=== PATIENT | male | born 1990 | race Caucasian/White ===

== ENCOUNTER 2024-05-19 14:09 | Outpatient (CLI) | payer OTHER, SELFPAY ==
--- OUTSIDE RECORDS SUMMARY | 2024-05-19 14:24 | XMS_ITS | Clinical Summary ---
Author Organization [facility] Address [address] [place] [address] Care Team Providers Care Mobile Development Manager Name Role Phone Sulema Devine M.D. Primary Care Lester kat Source Comments Patient records contain information from all sites at [facility]. For routine questions regarding patient records, call [phone] during business hours, M-F 8:00 AM - 5:00 PM Central Time. Record requests for emergency care only can be directed to [phone] at any time.[facility] Allergies No known active allergies Medications Medication Sig Dispensed Refills Start Date End Date Status clobetasol (TEMOVATE) 0.05 % gel Apply topically as needed (Canker sores). 60 g 11/24/2019 Active ALPRAZolam (XANAX) 1 mg tablet Take 1-2 tablets (1-2 mg total) by mouth 30 minutes prior to procedure. 2 tablet 02/02/2023 Active Active Problems Problem Noted Date Diagnosed Date Hypoxia Sleep Related 10/19/2020 Overview: Images from the original note were not included. In 2011, the patient had sleep medicine consult here at [facility] for what he described was restless sleep. On 07/31/2012, the patient underwent pulse oximetry which was unremarkable. At that time, there was reported discussion about doing a sleep study in the possible benefit of CPAP therapy, but the patient deferred this. In September 2020, the patient reached out to his PCP about possibly repeating some of these tests. On 10/08/2020, he underwent repeat pulse oximetry that did have a lapse in recording for approximately 2 hours, but otherwise revealed a baseline SpO2 90% with approximately 6 desaturation events recorded. He subsequently underwent PFTs which were unremarkable, documented below. The patient reports that his says he gets restless sleep but does not snore. He reports he will wake up about 1 time per night. He denies AM headaches, fatigue, weight gain. He denies a history of sleep apnea. He reports that he exercises frequently and can run up to 4 miles easily. Last Assessment & Plan: Overall, my suspicion for obstructive sleep apnea or physiologic hypoxia are low given the patient's normal PFTs, clinical exam, and overall active healthy lifestyle. Given that his probe did not strip picker any oxygen levels for approximately 4 hours, I wonder if this is a false positive overnight pulse oximetry. Regardless, we will be having him seen by our colleagues in [facility] Sleep Medicine for further management to discuss possible sleep study versus repeat overnight pulse oximetry. Dysfunction Eustachian Tube Bilateral 10/19/2020 Overview: The patient reports a long history of eustachian tube dysfunction. He reports a history of not being able to hear for approximately 1 day after going on flights, as well as going scuba diving back in 2010 were water would not clear from his ears for about 1 week. He saw outside ENT at that time where he was reportedly told there were not any therapies offered. Since then, he reports his symptoms have remained relatively constant. He reports feeling increased pressure in his ears when he is working out at the gym, and states that his friends say his voice changes, like an exhaled moan. He denies any ear pain, fullness, hearing loss, tinnitus, nasal itch, frequent sneezing, rhinorrhea, sore throat, cough, heartburn, vertigo, or frequent ear infections as a child. ?? Last Assessment & Plan: Overall, based on the patient's history and clinical exam, my suspicion for eustachian tube dysfunction is high. He reports a clear history of water not being able to clear from his ears for about 1 week after scuba diving. Moreover, his notable air bubbles around the tympanic membrane Vishnu suspicious for eustachian tube dysfunction. Differential includes Meniere's disease which is less likely based on lack of vertigo/dizziness symptoms. We will order audiogram and have him be seen by our colleagues in ENT for further discussion and treatment options for his eustachian tube dysfunction. Encounters Date Type Department Care Team Description 03/11/2024 8:30 AM CDT Clinical Support - [facility] Division of General Internal Medicine in [place], [place] [address] [place] [address] Michelle Barragan from Last 3 Months Immunizations Name Administration Dates Next Due 9vHPV 05/24/2020,01/06/2020,11/18/2019 HepB Adult 02/17/2014,09/22/2013,07/21/2013 HepB, Unspecified 01/27/2003,08/08/2002,07/24/20 Influenza (IM) Preservative Free 09/09/2013,08/26 Influenza Split 09/06/2010 MMR 07/24/2001,07/18/1990 OPV 08/10/1998,,09/30/1990,1988 SARS-COV-2 (COVID-19) - MODERNA(Discontinued) 11/17/2021 SARS-COV-2 (COVID-19) - PFIZ ER (Discontinued)(12 years or older) 12/29/2020,11/24/2020 Td Preservative Free (TENIVA C, DECAVAC) 11/18/2019 Td, (Adult) Unspecified 12/07/2009 Tdap 12/07/2009 influenza vaccine quad (FLUZONE/FLUARIX) (6 months and older)(PF) 09/25/2022,08/30/2021,09/21/2020,2018,09/18/2018,09/22/2015,09/16/2014 Social History Tobacco Use Types Packs/Day Years Used Date Smoking Tobacco: Never Smokeless Tobacco: Never [employer] Utilities Answer Date Recorded In the past 12 months has e electric, gas, oil, or water company threatened to shut off services in your home? No 03/07/2024 Humiliation, Afraid, Rape, and Kick questionnair e Answer Date Recorded Within the last year, have y ou been afraid of your partner or ex-partner? No 10/14/2020 Within the last year, have y ou been humiliated or emotionally abused in other ways by your partner or ex-partner? No Within the last year, have y ou been kicked, hit, slapped, or otherwise physically hurt by your partner or ex-partner? No 10/14/2020 Within the last year, have y ou been raped or forced to have any kind of sexual activity by your partner or ex-partner? No 10/14/2020 Social Connection and Isolat ion Panel [NHANES] Answer Date Recorded In a typical week, how many times do you talk on the phone with family, friends, or neighbors? More than three times a week 10/14/2020 How often do you get togethe r with friends or relatives? Twice a week 10/14/2020 How often do you attend chur or yazidism services? More than 4 times per year 10/14/2020 Do you belong to any clubs o r organizations such as christian groups, unions, fraternal or athletic groups, or school groups? Yes 10/14/2020 How often do you attend meet ings of the clubs or organizations you belong to? More than 4 times per year 10/14/2020 Are you , , di vorced, , never , or living with a partner? 10/14/2020 AUDIT-C Answer Date Recorded Q1: How often do you have a drink containing alc ohol? 2-4 times a month 10/14/2020 Q2: How many drinks containi ng alcohol do you have on a typical day when you are drinking? 1 or 2 10/14/2020 Q3: How often do you have si x or more drinks on one occasion? Never 10/14/2020 Overall Financial Resource Strain (CARDIA) Answe r Date Recorded How hard is it for you to pa y for the very basics like food, housing, medical care, and heating? Not hard at all 10/14/2020 PHQ-2 Answer Date Recorded PHQ-2 Score 0 01/29/2023 [facility] of Occupat ional Health - Occupational Stress Questionnaire Answer Date Recorded Do you feel stress - tense, restless, nervous, or anxious, or unable to sleep at night because your mind is troubled all the time - these days? Only a little 10/14/2020 Exercise Vital Sign Answer Date Recorde d On average, how many days pe r week do you engage in moderate to strenuous exercise (like a brisk walk)? 2 days 03/07/2024 On average, how many minutes do you engage in exercise at this level? 10 min 03/07/2024 Hunger Vital Sign Answer Date Recorded Within the past 12 months, y ou worried that your food would run out before you got the money to buy more. Never true 03/07/20 Within the past 12 months, t he food you bought just didn't last and you didn't have money to get more. Never true 03/07/2024 PRAPARE - Transportation Answer Date Re corded In the past 12 months, has l ack of transportation kept you from medical appointments or from getting medications? No 02/24 In the past 12 months, has l ack of transportation kept you from meetings, work, or from getting things needed for daily living? No 03/07/2024 Nutrition Answer Date Recorded Nutrition: EVOO Fat Source Unknown 03/07 On average, how many serving s of fruits and vegetables do you eat per day (serving size is equal to 1 cup or approximately the size of a tennis ball)? 3-5 03/07/2024 Dental Answer Date Recorded Dental: Regular Dentist Yes 03/07/20 Employment Answer Date Recorded Employment status Employed and actively working without restrictions 03/07/2024 Housing Stability Answer Date Recorded What is your living situation today? I have a [facility] place to live 03/07/2024 Education Answer Date Recorded What is the highest level of school you have completed or the highest degree you have received? Professional school degree (e.g., MD, DDS, DVM, ELVI) 10/14/2020 Sex and Gender Information Value Date Recorded Sex Assigned at Male 01/06/2020 7:41 AM PHARMACEUTICAL ASSISTANT Gender Identity Male 01/06/2020 7:41 AM PHARMACEUTICAL ASSISTANT Sexual Orientation Straight 01/06/2020 7: 41 AM PHARMACEUTICAL ASSISTANT Last Filed Vital Signs Vital Sign Reading Time Taken Comments Blood Pressure 101/67 10/19/2020 3:37 PM PHARMACEUTICAL ASSISTANT Pulse 88 10/19/2020 3:37 PM PHARMACEUTICAL ASSISTANT Temperature 36.1 ??C (97 ??F) 07/10/2019 5:52 PM CDT Respiratory Rate - - Oxygen Saturation 100% 07/10/2019 5:52 PM CDT Inhaled Oxygen Concentration - - Weight 66.6 kg (146 lb 13.2 oz) 10/19/2020 3:37 PM PHARMACEUTICAL ASSISTANT Height 176.6 cm (5' 9.53) 09/07/2016 3:04 PM CD T Body Mass Index 21.35 09/07/2016 3:04 PM CDT Plan of Treatment Health Maintenance Due Date Last Done Comments HIV Screening 1989 Lipid (Cholesterol) Screening 1989 COVID-19 Vaccine ( - 2022- season) 2023 11/17/2021, 12/29/2020, 11/24/2020 Depression Screening (Annual PHQ-2) 11/26/2023 DTaP,Tdap,and Td Vaccines (4 - Td or Tdap) 11/18/2029 11/18/2019, 12/07/2009, 12/07/2009 Hepatitis B Vaccines Completed 02/17/2014, 09/22/2013, 07/21/2013, Additional history exists HPV Vaccines Completed 05/24/2020, 12/27, 11/18/2019 Influenza Vaccine Completed 08/14/2023, , 08/30/2021, Additional history exists Pneumococcal vaccine (0-64 years) Aged Out No longer eligible based on patient's age to complete this topic Advance Directives For more information, please contact: [phone] Documents on File Type Date Recorded Patient Rehab Tech Expl anation Advance Directives 11/17/2015 12:00 AM Maren garg document. See document viewer. Care Teams Mobile Development Manager Relationship Specialty Start Date End Date Sulema Devine M.D. [address] [place] [address] PCP - General 05/26/22
--- OUTSIDE RECORDS SUMMARY | 2024-05-19 14:24 | XMS_ITS ---
Author Organization [facility] Address [address] [place] [address] Care Team Providers Care Profiling Machine Setup Operator Name Role Phone Unavailable Unavailable Unavailable Surgery Details Not on file Complications Check Surgery Details section. Procedure Estimated Blood Loss Check Surgery Details section. Procedure Findings Check Surgery Details section. Procedure Specimens Taken Check Surgery Details section.
--- OUTSIDE RECORDS SUMMARY | 2024-05-19 14:24 | XMS_ITS | Referral Summary ---
Author Organization [facility] Address [address] [place] [address] Care Team Providers Care Architecture Consultant Name Role Phone Sulema Devine M.D. Primary Care Lester kat Source Comments Patient records contain information from all sites at [facility]. For routine questions regarding patient records, call [phone] during business hours, M-F 8:00 AM - 5:00 PM Central Time. Record requests for emergency care only can be directed to [phone] at any time.[facility] Encounters Date Type Department Care Team Description 03/11/2024 8:30 AM CDT Clinical Support - [facility] Division of General Internal Medicine in [place], [place] [address] [place] [address] Michelle Barragan from Last 3 Months Allergies No known active allergies Medications Medication [...] patient had sleep medicine consult here at [facility] for what he described was restless sleep. [...] lifestyle. Given that his probe did not picker packer any oxygen levels for approximately 4 hours, I wonder if this is a false positive overnight pulse oximetry. Regardless, we will be having him seen by our colleagues in [facility] Sleep Medicine for further management to discuss [...] treatment options for his eustachian tube dysfunction. Immunizations Name Administration Dates Next Due 9vHPV [...] Date Smoking Tobacco: Never Smokeless Tobacco: Never Bee There Utilities Answer Date Recorded In the past [...] How often do you attend chur or uatsdin services? More than 4 times per year 10/14/2020 Do you belong to any clubs o r organizations such as mandaen groups, unions, fraternal or athletic groups, or [...] Answer Date Recorded PHQ-2 Score 0 01/29/2023 [facility] of Occupat ional Health - Occupational Stress [...] your living situation today? I have a [facility] place to live 03/07/2024 Education Answer Date Recorded What is the highest level of school you have completed or the highest degree you have received? Professional school degree (e.g., MD, DDS, DVM, ELVI) 10/14/2020 Sex and Gender Information Value Date Recorded Sex Assigned at Male 01/06/2020 7:41 AM SOLAR DEVELOPMENT ENGINEER Gender Identity Male 01/06/2020 7:41 AM SOLAR DEVELOPMENT ENGINEER Sexual Orientation Straight 01/06/2020 7: 41 AM SOLAR DEVELOPMENT ENGINEER Last Filed Vital Signs Vital Sign Reading Time Taken Comments Blood Pressure 101/67 10/19/2020 3:37 PM SOLAR DEVELOPMENT ENGINEER Pulse 88 10/19/2020 3:37 PM SOLAR DEVELOPMENT ENGINEER Temperature 36.1 ??C (97 ??F) 07/10/2019 5:52 PM CDT Respiratory Rate - - Oxygen Saturation 100% 07/10/2019 5:52 PM CDT Inhaled Oxygen Concentration - - Weight 66.6 kg (146 lb 13.2 oz) 10/19/2020 3:37 PM SOLAR DEVELOPMENT ENGINEER Height 176.6 cm (5' 9.53) 09/07/2016 3:04 PM CD T Body Mass Index 21.35 09/07/2016 3:04 PM CDT Plan of Treatment Not on file Advance Directives For more information, please contact: [phone] Documents on File Type Date Recorded Patient Diversional Therapist'S Assistant Expl anation Advance Directives 11/17/2015 12:00 AM Maren garg document. See document viewer. Care Teams Architecture Consultant Relationship Specialty Start Date End Date Sulema Devine M.D. [address] [place] [address] PCP - General 05/26/22
--- OUTSIDE RECORDS SUMMARY | 2024-05-19 14:24 | XMS_ITS | Encounter Summary ---
Author Organization [facility] Address [address] [place] [address] Care Team Providers Care Roller Helper Name Role Phone Sulema Devine M.D. Primary Care shey Reason for Visit * Appointment Request (Routine) - Authorized Specialty Diagnoses / Procedures Referred By Veronica subramanian Referred To Contact Research Referral ID Status Reason Start Date Expiration Date V isits Requested Visits Authorized [id number] Authorized 02/22/2024 02/21/2025 1 1 Encounter Details Date Type Department Care Team (Late st Contact Info) Description 03/11/2024 8:30 AM CDT Clinical Support - [facility] Division of General Internal Medicine in [place], [place] [address] [place] [address] Michelle Barragan Social History Tobacco Use Types Packs/Day Years Used Date Smoking Tobacco: Never Smokeless Tobacco: Never [place] Utilities Answer Date Recorded In the past 12 months has [employer], gas, oil, or water [employer] threatened to shut off services in your [...] 10/14/2020 How often do you attend chur ch or oriental orthodox services? More than 4 times per year 10/14/2020 Do you belong to any clubs o r organizations such as advent groups, unions, fraternal or athletic groups, or [...] Answer Date Recorded PHQ-2 Score 0 01/29/2023 [facility] of Occupat ional Health - Occupational Stress [...] your living situation today? I have a [facility] place to live 03/07/2024 Education Answer Date Recorded What is the highest level of school you have completed or the highest degree you have received? Professional school degree (e.g., MD, DDS, DVM, ELVI) 10/14/2020 Sex and Gender Information Value Date Recorded Sex Assigned at Male 01/06/2020 7:41 AM SUBSTATION INSPECTOR Gender Identity Male 01/06/2020 7:41 AM SUBSTATION INSPECTOR Sexual Orientation Straight 01/06/2020 7: 41 AM SUBSTATION INSPECTOR documented as of this encounter Plan of Treatment Not on file documented as of this encounter Visit Diagnoses Not on filedocumented in this encounter Care Teams Roller Helper Relationship Specialty Start Date End Date Sulema Devine M.D. [address] [place] [address] PCP - General 05/26/22 documented as of this encounter
== END 2024-05-19 14:10 | disposition home or self-care (01) ==
PROVIDERS: PCP Internal Medicine; Visit Provider Internal Medicine
DX: Z13.220 Encounter for screening for lipoid disorders (principal); Z13.228 Encounter for screening for other metabolic disorders; R04.0 Epistaxis
CPT/HCPCS: 80053; 80061; 85610; 85730

== ENCOUNTER 2025-05-20 14:12 | Outpatient (CLI) | payer OTHER, SELFPAY ==
--- NOTE | 2025-05-20 14:30 | CRLHL7_ITS ---
For Patients: As a result of the Century Cures Act, medical imaging exams and procedure reports are released immediately into your electronic medical record. You may view this report before your referring provider. If you have questions, please contact your health care provider. Indication: Dorsalgia Technique: Multiplanar, multisequence, MRI of the lumbar spine, obtained without contrast. Comparison: Lumbar spine x-ray 03/05/2025 Findings: The lumbar lordosis is preserved. No significant spondylolisthesis. Vertebral body heights are grossly maintained. No evidence of acute fracture or focal compression deformity. Bone marrow signal appears within normal limits. The conus medullaris terminates at approximately L1. No suspicious findings in the prevertebral and paraspinal soft tissues. Included SI joints are unremarkable. T11-T12 through L3-L4: No neural foraminal or spinal canal stenosis. L4-L5: Mild disc bulge, shallow right foraminal protrusion and annular fissure, mild facet arthropathy. No neural foraminal or spinal canal stenosis. L5-S1: Diffuse disc bulge with broad-based central disc protrusion, disc contact upon the descending S1 nerve roots without imaging evidence of impingement or spinal canal stenosis. Mild facet arthropathy. No neural foraminal or spinal canal stenosis. Impression: 1. Mild lower lumbar spondylosis as detailed. 2. At L5-S1, diffuse disc bulge and left central protrusion contact the descending bilateral S1 nerve roots along both lateral recesses without imaging evidence of impingement. 3. No neural foraminal or central spinal canal stenosis. Dictated by Marychuy Carbone MD @ 05/21/2025 7:07:27 PM (Electronically Signed)
== END 2025-05-20 14:13 | disposition home or self-care (01) ==
LOC: MRI 14:12
PROVIDERS: PCP Internal Medicine; Visit Provider Internal Medicine
DX: M54.9 Dorsalgia, unspecified (principal); M47.896 Other spondylosis, lumbar region; M51.27 Other intervertebral disc displacement, lumbosacral region
CPT/HCPCS: 72148

== ENCOUNTER 2025-06-29 14:45 | Outpatient (RCR) | payer OTHER, SELFPAY | END 2025-10-27 23:59 | disposition home or self-care (01) | PROVIDERS: PCP Internal Medicine; Visit Provider Internal Medicine | DX: M54.50 Low back pain, unspecified (principal); Z51.89 Encounter for other specified aftercare | CPT/HCPCS: 97110; 97140; 97161 ==

== ENCOUNTER 2025-10-21 10:55 | Outpatient (CLI) | payer OTHER, SELFPAY | END 2025-10-21 10:56 | disposition home or self-care (01) | LOC: INJ CL 10:55 | PROVIDERS: PCP Internal Medicine; Visit Provider Nurse Anesthetist, Certified Registered | DX: M54.16 Radiculopathy, lumbar region (principal); M51.26 Other intervertebral disc displacement, lumbar region | CPT/HCPCS: 62323; J0665; Q9966 ==